=== PATIENT | female | born 1980 | race Caucasian/White ===

== ENCOUNTER 2024-06-08 08:45 | Outpatient (CLI) | payer OTHER, SELFPAY | END 2024-06-08 08:46 | disposition home or self-care (01) | LOC: NFLDREF 06-12 15:44 | PROVIDERS: PCP Physician Assistant Medical; Referring Provider Physician Assistant Medical; Visit Provider Physician Assistant Medical | DX: R73.03 Prediabetes (principal); Z11.59 Encounter for screening for other viral diseases; Z13.220 Encounter for screening for lipoid disorders; Z13.29 Encounter for screening for other suspected endocrine disorder | CPT/HCPCS: 80053; 80061; 84443; 86703; 86803 ==

== ENCOUNTER 2024-06-26 18:09 | Outpatient (CLI) | payer OTHER, SELFPAY ==
--- NOTE | 2024-06-26 18:20 | CRLHL7_ITS ---
For Patients: As a result of the Century Cures Act, medical imaging exams and procedure reports are released immediately into your electronic medical record. You may view this report before your referring provider. If you have questions, please contact your health care provider. BILATERAL SCREENING MAMMOGRAM WITH COMPUTER-AIDED DETECTION AND TOMOSYNTHESIS TECHNIQUE: CC and MLO views were obtained. These mammographic images have been obtained using full-field digital technique. These mammographic images were interpreted with the benefit of computer-aided detection. Breast Tomosynthesis was used in this interpretation. COMPARISON FILM: 05/05/23, 05/04/22, 04/13/21. FINDINGS: There are scattered areas of fibroglandular density. IMPRESSION: There is no radiographic evidence for malignancy. ASSESSMENT: BI-RADS Category 1: Negative RECOMMENDATION: Routine screening mammogram in 1 year. A lay language report of this examination will be provided to the patient. Phil Batista M.D. Diagnostic Radiologist [email or web address] SP/Dictated by: Phil Batista MD @ 07/04/2024 10:44:00 AM (Electronically Signed)
== END 2024-06-26 18:10 | disposition home or self-care (01) ==
PROVIDERS: PCP Physician Assistant Medical; Visit Provider Physician Assistant Medical
DX: Z12.31 Encounter for screening mammogram for malignant neoplasm of breast (principal)
CPT/HCPCS: 77063; 77067

== ENCOUNTER 2025-04-10 09:25 | Outpatient (CLI) | payer OTHER, SELFPAY | END 2025-04-10 09:26 | disposition home or self-care (01) | LOC: NFLDREF 04-11 22:47 | PROVIDERS: PCP Physician Assistant Medical; Referring Provider Physician Assistant Medical; Visit Provider Physician Assistant Medical | DX: Z00.00 Encounter for general adult medical examination without abnormal findings (principal); R73.03 Prediabetes; E66.9 Obesity, unspecified; F41.8 Other specified anxiety disorders | CPT/HCPCS: 80048; 80061; 84439; 84443 ==

== ENCOUNTER 2025-06-19 16:26 | Outpatient (CLI) | payer OTHER, SELFPAY | END 2025-06-19 16:27 | disposition home or self-care (01) | LOC: NFLDREF 06-24 19:27 | PROVIDERS: PCP Physician Assistant Medical; Referring Provider Physician Assistant Medical; Visit Provider Physician Assistant Medical | DX: R79.89 Other specified abnormal findings of blood chemistry (principal) | CPT/HCPCS: 84443; 86376 ==

== ENCOUNTER 2025-07-16 17:21 | Outpatient (CLI) | payer OTHER, SELFPAY ==
--- NOTE | 2025-07-16 17:40 | CRLHL7_ITS ---
For Patients: As a result of the Century Cures Act, medical imaging exams and procedure reports are released immediately into your electronic medical record. You may view this report before your referring provider. If you have questions, please contact your health care provider. INDICATION: BILATERAL SCREENING MAMMOGRAM, ASYMPTOMATIC 45 Y/O FEMALE COMPARISON: MAMMO 06/26/2024, 05/05/2023, 05/04/2022 TECHNIQUE: Digital mammogram in CC and MLO projections including computer-aided detection (CAD) and tomosynthesis. BREAST COMPOSITION: There are scattered areas of fibroglandular density. FINDINGS: No suspicious findings. ASSESSMENT: BI-RADS 1 Negative RECOMMENDATION: Annual screening mammogram. A lay language report of this examination will be provided to the patient. Dictated by: Phil Batista MD @ 07/17/2025 10:56:19 (Electronically Signed)
== END 2025-07-16 17:22 | disposition home or self-care (01) ==
LOC: MAMMO 17:22
PROVIDERS: PCP Physician Assistant Medical; Visit Provider Physician Assistant Medical
DX: Z12.31 Encounter for screening mammogram for malignant neoplasm of breast (principal)
CPT/HCPCS: 77063; 77067